=== PATIENT | female | born 1970 | race Caucasian/White ===

== ENCOUNTER 2016-03-01 00:33 | Emergency (ER) | payer SELFPAY ==
[~2016-03-01] VITALS: Ht 175.3 cm; Wt 66.0 kg
[~2016-03-01 00:33] MED LIST: LORA-392 PO; OXYC1SOL5 PO; TRAM50 PO; Z.0.WALKERFRONT; Z.0.WHEELELR
[2016-03-01 00:35] VITALS: BP 159/91; PULSE 109; RESP 16; TEMP 98.2; O2SAT 99
[2016-03-01] MEDS ORDERED: CITA10TA4 PO (00:59)
[2016-03-01] MEDS ORDERED: TRAZ300T2 PO (00:59)
[2016-03-01 02:25] LABS: AUTOMATED NEUTROPHIL # 5.1 TH/MM3 (1.8-7.7); BASOPHIL # 0.1 TH/MM3 (0-0.2); BASOPHIL % 0.8 % (0.0-2.0); EOSINOPHIL # 0.1 TH/MM3 (0-0.4); EOSINOPHIL % 1.3 % (0.0-4.0); HEMATOCRIT 39.8 % (35.0-46.0); HEMO FLAGS DIFF FINAL; LYMPH % 34.3 % (9.0-44.0); LYMPHOCYTE # 3.2 TH/MM3 (1.0-4.8); MEAN CELL VOLUME 92.7 FL (80.0-100.0); MEAN CORPUSCULAR HEMOGLOBIN 32.7 PG (27.0-34.0); MEAN CORPUSCULAR HGB CONC 35.3 % (32.0-36.0); MONO % 8.4 % (0.0-8.0); NEUT % 55.2 % (16.0-70.0); PLATELET COUNT 291 TH/MM3 (150-450); RED BLOOD COUNT 4.29 MIL/MM3 (4.00-5.30); RED CELL DISTRIBUTION WIDTH 12.5 % (11.6-17.2); WHITE BLOOD COUNT 9.2 TH/MM3 (4.0-11.0)
[2016-03-01 02:34] LABS: AMPHETAMINE, URINE POS (NEG); BARBITURATES, URINE NEG (NEG); COCAINE, URINE NEG (NEG)
[2016-03-01 02:34] LABS: ALKALINE PHOSPHATASE 129 U/L (45-117); ALT (GPT) 23 U/L (10-53); ANION GAP 10 MEQ/L (5-15); AST (GOT) 28 U/L (15-37); BICARBONATE 24.9 MEQ/L (21.0-32.0); BLOOD UREA NITROGEN 14 MG/DL (7-18); CHLORIDE 105 MEQ/L (98-107); GLOMERULAR FILTRATION RATE 70 ML/MIN (>89); POTASSIUM 3.2 MEQ/L (3.5-5.1); SODIUM (NA) 140 MEQ/L (136-145)
[2016-03-01 02:52] LABS: ACETAMINOPHEN LESS THAN 2.0 MCG/ML (10.0-30.0); TOTAL BILIRUBIN ADULT 0.6 MG/DL (0.2-1.0)
--- NOTE | 2016-03-01 03:43 | PD ---
HPI Chief Complaint: Psychiatric Symptoms Time Seen by Provider: 01:30 Travel History International Travel<30 days: No Contact w/Intl Traveler<30days: No Traveled to known affect area: No History of Present Illness HPI This is a 45-year-old female who presents voluntarily for psychiatric evaluation. She reports over the past several months she has been feeling increasingly depressed, overwhelmed with sadness. She relapsed on amphetamines and alcohol yesterday evening. She presents here now requesting psychiatric evaluation. Sometimes she has thoughts of harming herself but she has no formulated plans. Denies any medical complaints at this time. She has no other complaints. BA has been ordered. PFSH Past Medical History Arthritis: Yes (RA IN NECK AND BACK) Asthma: No Autoimmune Disease: No Bipolar Disorder: Yes Anxiety: Yes Depression: Yes (MANIC) Heart Rhythm Problems: No Cancer: No Cardiovascular Problems: No High Cholesterol: No Chemotherapy: No Chest Pain: No Congestive Heart Failure: No COPD: No Cerebrovascular Accident: No Diabetes: No Diminished Hearing: No Endocrine: No GERD: No Genitourinary: No Hiatal Hernia: No Immune Disorder: No Kidney Stones: No Musculoskeletal: Yes Neurologic: No Psychiatric: Yes Reproductive: No Respiratory: Yes (SMOKER) Immunizations Current: No Migraines: No Radiation Therapy: No Renal Failure: No Seizures: No Sickle Cell Disease: No Sleep Apnea: No Thyroid Disease: No Ulcer: No ?: Not LMP: 02/15/16 : 3 Para: 1 : 2 Past Surgical History Abdominal Surgery: No AICD: No Arteriovenous Shunt: No Cardiac Surgery: No Ear Surgery: No Endocrine Surgery: No Eye Surgery: No Genitourinary Surgery: No Gynecologic Surgery: Yes (BREAST AUGMENTATION) Insulin Pump: No Oral Surgery: No Pacemaker: No Thoracic Surgery: No Other Surgery: Yes (breast implants) Social History Alcohol Use: Yes (social) Tobacco Use: Yes (1 PPD) Substance Use: Yes (Hx. of substance abuse) Allergies-Medications (Allergen,Severity, Reaction): Coded Allergies: No Known Allergies (Verified , 03/01/16) Reported Meds & Prescriptions Reported Meds & Active Scripts Active Reported Citalopram (Citalopram Hydrobromide) 10 Mg Tab 10 Mg PO DAILY Trazodone (Trazodone HCl) 300 Mg Tab 300 Mg PO HS Review of Systems Except as stated in HPI: all other systems reviewed are Neg Physical Exam Narrative GENERAL: Well-developed well-nourished female in no acute distress SKIN: Warm and dry. HEAD: Atraumatic. Normocephalic. EYES: Pupils equal and round. No scleral icterus. No injection or drainage. CARDIOVASCULAR: Regular rate and rhythm. No murmur appreciated. RESPIRATORY: No accessory muscle use. Clear to auscultation. Breath sounds equal bilaterally. GASTROINTESTINAL: Abdomen soft, non-tender, nondistended. Hepatic and splenic margins not palpable. MUSCULOSKELETAL: No obvious deformities. No clubbing. No cyanosis. No edema. NEUROLOGICAL: Awake and alert. No obvious cranial nerve deficits. Motor grossly within normal limits. Normal speech. PSYCHIATRIC: Depressed mood. Insight and judgment appear reasonable. Data Data Last Documented VS Vital Signs Date Time Temp Pulse Resp B/P Pulse Ox O2 Delivery O2 Flow Rate FiO2 03/01/16 01:00 16 03/01/16 00:35 98.2 109 159/91 99 Room Air Orders Complete Blood Count With Diff (03/01/16 00:45) Comprehensive Metabolic Panel (03/01/16 00:45) Drug Screen, Random Urine (03/01/16 00:45) Alcohol (Ethanol) (03/01/16 00:45) Salicylates (Aspirin) (03/01/16 00:45) Tylenol (Acetaminophen) (03/01/16 00:45) Psych Screen (03/01/16 00:45) Labs Laboratory Tests Test 03/01/16 03/01/16 03/01/16 00:45 01:10 01:25 White Blood Count 9.2 TH/MM3 Red Blood Count 4.29 MIL/MM3 Hemoglobin 14.0 GM/DL Hematocrit 39.8 % Mean Corpuscular Volume 92.7 FL Mean Corpuscular Hemoglobin 32.7 PG Mean Corpuscular Hemoglobin 35.3 % Concent Red Cell Distribution Width 12.5 % Platelet Count 291 TH/MM3 Mean Platelet Volume 8.2 FL Neutrophils (%) (Auto) 55.2 % Lymphocytes (%) (Auto) 34.3 % Monocytes (%) (Auto) 8.4 % Eosinophils (%) (Auto) 1.3 % Basophils (%) (Auto) 0.8 % Neutrophils # (Auto) 5.1 TH/MM3 Lymphocytes # (Auto) 3.2 TH/MM3 Monocytes # (Auto) 0.8 TH/MM3 Eosinophils # (Auto) 0.1 TH/MM3 Basophils # (Auto) 0.1 TH/MM3 CBC Comment DIFF FINAL Differential Comment Sodium Level 140 MEQ/L Potassium Level 3.2 MEQ/L Chloride Level 105 MEQ/L Carbon Dioxide Level 24.9 MEQ/L Anion Gap 10 MEQ/L Blood Urea Nitrogen 14 MG/DL Creatinine 0.88 MG/DL Estimat Glomerular Filtration 70 ML/MIN Rate Random Glucose 103 MG/DL Calcium Level 8.9 MG/DL Total Bilirubin 0.6 MG/DL Aspartate Amino Transf 28 U/L (AST/SGOT) Alanine Aminotransferase 23 U/L (ALT/SGPT) Alkaline Phosphatase 129 U/L Total Protein 7.5 GM/DL Albumin 4.0 GM/DL Salicylates Level 3.2 MG/DL Acetaminophen Level LESS THAN 2.0 MCG/ML Ethyl Alcohol Level LESS THAN 3 MG/DL Urine Opiates Screen NEG Urine Barbiturates Screen NEG Urine Amphetamines Screen POS Urine Benzodiazepines Screen NEG Urine Cocaine Screen NEG Urine Cannabinoids Screen NEG MDM Medical Decision Making Medical Screen Exam Complete: Yes Emergency Medical Condition: Yes Medical Record Reviewed: Yes Differential Diagnosis Substance induced mood disorder, acute psychosis, major depressive disorder, depressive disorder not otherwise specified, bipolar disorder, schizoaffective disorder Narrative Course 45-year-old female presents for evaluation of depression and suicidal ideation. The patient was placed under Steel act. Mental health screening discussed with the patient. Psychiatric screen ordered. The patient's lab work is notable for positive amphetamine test, potassium 3.2. She'll be given oral potassium supplementation. She is medically cleared for psychiatric disposition. Sammy Lindo Mar 01, 2016 03:43
[2016-03-01] MEDS ORDERED: POTASSIUM CHLORIDE 20 MEQ CONTROLLED RELEASE TAB PO ONE (04:00)
[2016-03-01 06:22] VITALS: BP 118/76; PULSE 81; RESP 18; O2SAT 99
[2016-03-01] MEDS ORDERED: NICOTINE 21 MG/24 HR PATCH TD ONE (10:00)
[2016-03-01 10:20] VITALS: BP 119/67; PULSE 70; RESP 18
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
[2016-03-01 14:52] VITALS: BP 119/67; PULSE 70; RESP 18
== END 2016-03-01 17:11 | disposition home or self-care (01) ==
LOC: NEPA 00:33 → NEPJ 17:11
DX: F43.21 Adjustment disorder with depressed mood (principal); F15.10 Other stimulant abuse, uncomplicated; R45.851 Suicidal ideations; F31.9 Bipolar disorder, unspecified; F17.210 Nicotine dependence, cigarettes, uncomplicated
CPT/HCPCS: 80053; 80307; 80320; 80329; 85025; 99284; G0480

== ENCOUNTER 2016-05-22 14:50 | Emergency (ER) | payer SELFPAY ==
[~2016-05-22] VITALS: Ht 175.3 cm; Wt 65.0 kg
[~2016-05-22 14:50] MED LIST changes: +CITA10TA4 PO; -LORA-392 PO; -OXYC1SOL5 PO; -TRAM50 PO; +TRAZ300T2 PO; -Z.0.WALKERFRONT; -Z.0.WHEELELR
[2016-05-22 14:52] VITALS: BP 148/83; PULSE 84; RESP 24; TEMP 97.9; O2SAT 96
[2016-05-22] MEDS ORDERED: GABA600T PO (16:07)
[2016-05-22 16:28] LABS: AMPHETAMINE, URINE NEG (NEG); BARBITURATES, URINE NEG (NEG); COCAINE, URINE NEG (NEG)
--- NOTE | 2016-05-22 16:32 | PD ---
HPI Chief Complaint: Psychiatric Symptoms Time Seen by Provider: 15:40 Travel History International Travel<30 days: No Contact w/Intl Traveler<30days: No Traveled to known affect area: No History of Present Illness HPI The patient is a 45-year-old female who presents to the emergency department for psychiatric evaluation. The patient has a history of bipolar affective disorder and is currently taken Celexa. The patient states her psychiatrist is at [facility]. The patient went to [facility] earlier today and was referred to the emergency department she has multiple physical complaints. The patient notes a 4 month history of occasional numbness and tingling to the upper and lower extremities, difficulty concentrating, occasional seeing "black spots ", lethargy, intermittent episodes of energy followed by fatigue. The patient also notes suicidal ideation of last several days, does not currently have a plan. The patient denies any drug use and 2 months, is no longer taking methamphetamines. She denies alcohol use. She denies any current chest pain or shortness of breath. PFSH Past Medical History Arthritis: Yes (RA IN NECK AND BACK) Asthma: No Autoimmune Disease: No Bipolar Disorder: Yes Anxiety: Yes Depression: Yes (MANIC) Heart Rhythm Problems: No Cancer: No Cardiovascular Problems: No High Cholesterol: No Chemotherapy: No Chest Pain: No Congestive Heart Failure: No COPD: No Cerebrovascular Accident: No Diabetes: No Diminished Hearing: No Endocrine: No GERD: No Genitourinary: No Hiatal Hernia: No Immune Disorder: No Kidney Stones: No Musculoskeletal: Yes Neurologic: No Psychiatric: Yes Reproductive: No Respiratory: Yes (SMOKER) Immunizations Current: Yes Migraines: No Radiation Therapy: No Renal Failure: No Seizures: No Sickle Cell Disease: No Sleep Apnea: No Thyroid Disease: No Ulcer: No Tetanus Vaccination: < 5 Years Influenza Vaccination: No ?: Unknown LMP: 05/15/16 : 3 Para: 1 : 2 Past Surgical History Abdominal Surgery: No AICD: No Arteriovenous Shunt: No Cardiac Surgery: No Ear Surgery: No Endocrine Surgery: No Eye Surgery: No Genitourinary Surgery: No Gynecologic Surgery: Yes (BREAST AUGMENTATION) Insulin Pump: No Oral Surgery: No Pacemaker: No Thoracic Surgery: No Other Surgery: Yes (BREAST AUGMENTATION) Social History Alcohol Use: No (quiet 2 months) Tobacco Use: Yes (1 PPD) Substance Use: Yes (HX OF PSA) Allergies-Medications (Allergen,Severity, Reaction): Coded Allergies: No Known Allergies (Verified , 05/22/16) Reported Meds & Prescriptions Reported Meds & Active Scripts Active Reported Gabapentin 600 Mg Tab 600 Mg PO TID Citalopram (Citalopram Hydrobromide) 10 Mg Tab 10 Mg PO DAILY Trazodone (Trazodone HCl) 300 Mg Tab 300 Mg PO HS Review of Systems Except as stated in HPI: all other systems reviewed are Neg General / Constitutional: No: Fever Cardiovascular: No: Chest Pain or Discomfort Respiratory: No: Shortness of Breath Gastrointestinal: No: Nausea, Vomiting, Abdominal Pain Genitourinary: No: Dysuria, Hematuria Musculoskeletal: Positive: Myalgias, Weakness Neurologic: Positive: Weakness Psychiatric: Positive: Substance Abuse (no substance abuse in 2 months) Physical Exam Narrative GENERAL: Awake, alert, pleasant 45-year-old female who appears her stated age is in no acute respiratory distress. SKIN: Focused skin assessment warm/dry. HEAD: Atraumatic. Normocephalic. EYES: Pupils equal and round. No scleral icterus. No injection or drainage. ENT: No nasal bleeding or discharge. Mucous membranes pink and moist. NECK: Trachea midline. No JVD. CARDIOVASCULAR: Regular rate and rhythm. No murmur appreciated. RESPIRATORY: No accessory muscle use. Clear to auscultation. Breath sounds equal bilaterally. GASTROINTESTINAL: Abdomen soft, non-tender, nondistended. No rebound tenderness. MUSCULOSKELETAL: No obvious deformities. No clubbing. No cyanosis. No edema. NEUROLOGICAL: Awake and alert. No obvious cranial nerve deficits. Motor grossly within normal limits. Normal speech. PSYCHIATRIC: Flat affect. Data Data Last Documented VS Vital Signs Date Time Temp Pulse Resp B/P Pulse Ox O2 Delivery O2 Flow Rate FiO2 05/22/16 16:07 86 17 05/22/16 14:52 97.9 148/83 96 Room Air Orders Complete Blood Count With Diff (05/22/16 15:48) Comprehensive Metabolic Panel (05/22/16 15:48) Thyroid Stimulating Hormone (05/22/16 15:48) Psych Screen (05/22/16 15:48) Drug Screen, Random Urine (05/22/16 15:48) Alcohol (Ethanol) (05/22/16 15:48) Labs Laboratory Tests Test 05/22/16 16:00 White Blood Count 7.3 TH/MM3 Red Blood Count 4.24 MIL/MM3 Hemoglobin 14.1 GM/DL Hematocrit 40.5 % Mean Corpuscular Volume 95.7 FL Mean Corpuscular Hemoglobin 33.2 PG Mean Corpuscular Hemoglobin 34.7 % Concent Red Cell Distribution Width 12.9 % Platelet Count 258 TH/MM3 Mean Platelet Volume 8.3 FL Neutrophils (%) (Auto) 59.9 % Lymphocytes (%) (Auto) 30.9 % Monocytes (%) (Auto) 6.0 % Eosinophils (%) (Auto) 2.5 % Basophils (%) (Auto) 0.7 % Neutrophils # (Auto) 4.4 TH/MM3 Lymphocytes # (Auto) 2.3 TH/MM3 Monocytes # (Auto) 0.4 TH/MM3 Eosinophils # (Auto) 0.2 TH/MM3 Basophils # (Auto) 0.0 TH/MM3 CBC Comment DIFF FINAL Differential Comment Sodium Level 138 MEQ/L Potassium Level 4.6 MEQ/L Chloride Level 105 MEQ/L Carbon Dioxide Level 28.1 MEQ/L Anion Gap 5 MEQ/L Blood Urea Nitrogen 10 MG/DL Creatinine 0.51 MG/DL Estimat Glomerular Filtration 131 ML/MIN Rate Random Glucose 85 MG/DL Calcium Level 9.3 MG/DL Total Bilirubin 0.4 MG/DL Aspartate Amino Transf 24 U/L (AST/SGOT) Alanine Aminotransferase 25 U/L (ALT/SGPT) Alkaline Phosphatase 94 U/L Total Protein 7.6 GM/DL Albumin 4.2 GM/DL Thyroid Stimulating Hormone 1.110 uIU/ML 3rd Gen Urine Opiates Screen NEG Urine Barbiturates Screen NEG Urine Amphetamines Screen NEG Urine Benzodiazepines Screen NEG Urine Cocaine Screen NEG Urine Cannabinoids Screen NEG Ethyl Alcohol Level LESS THAN 3 MG/DL MDM Medical Decision Making Medical Screen Exam Complete: Yes Emergency Medical Condition: Yes Medical Record Reviewed: Yes Interpretation(s) Laboratory Tests Test 05/22/16 16:00 White Blood Count 7.3 TH/MM3 Red Blood Count 4.24 MIL/MM3 Hemoglobin 14.1 GM/DL Hematocrit 40.5 % Mean Corpuscular Volume 95.7 FL Mean Corpuscular Hemoglobin 33.2 PG Mean Corpuscular Hemoglobin 34.7 % Concent Red Cell Distribution Width 12.9 % Platelet Count 258 TH/MM3 Mean Platelet Volume 8.3 FL Neutrophils (%) (Auto) 59.9 % Lymphocytes (%) (Auto) 30.9 % Monocytes (%) (Auto) 6.0 % Eosinophils (%) (Auto) 2.5 % Basophils (%) (Auto) 0.7 % Neutrophils # (Auto) 4.4 TH/MM3 Lymphocytes # (Auto) 2.3 TH/MM3 Monocytes # (Auto) 0.4 TH/MM3 Eosinophils # (Auto) 0.2 TH/MM3 Basophils # (Auto) 0.0 TH/MM3 CBC Comment DIFF FINAL Differential Comment Sodium Level 138 MEQ/L Potassium Level 4.6 MEQ/L Chloride Level 105 MEQ/L Carbon Dioxide Level 28.1 MEQ/L Anion Gap 5 MEQ/L Blood Urea Nitrogen 10 MG/DL Creatinine 0.51 MG/DL Estimat Glomerular Filtration 131 ML/MIN Rate Random Glucose 85 MG/DL Calcium Level 9.3 MG/DL Total Bilirubin 0.4 MG/DL Aspartate Amino Transf 24 U/L (AST/SGOT) Alanine Aminotransferase 25 U/L (ALT/SGPT) Alkaline Phosphatase 94 U/L Total Protein 7.6 GM/DL Albumin 4.2 GM/DL Thyroid Stimulating Hormone 1.110 uIU/ML 3rd Gen Urine Opiates Screen NEG Urine Barbiturates Screen NEG Urine Amphetamines Screen NEG Urine Benzodiazepines Screen NEG Urine Cocaine Screen NEG Urine Cannabinoids Screen NEG Ethyl Alcohol Level LESS THAN 3 MG/DL Differential Diagnosis Differential diagnosis includes bipolar affective disorder, depressive disorder NOS, substance induced mood disorder, mood disorder NOS, hypothyroidism, hyponatremia, hypocalcemia. Narrative Course Labs were drawn and sent. Psychiatric evaluation was ordered. Labs are unremarkable. Patient is medically cleared to be evaluated by psychiatry. Disposition as per psych. Diagnosis Primary Impression: Adjustment disorder with depressed mood Condition: Stable Ronnell Alan MD May 22, 2016 16:32
[2016-05-22 16:37] LABS: AUTOMATED NEUTROPHIL # 4.4 TH/MM3 (1.8-7.7); BASOPHIL % 0.7 % (0.0-2.0); EOSINOPHIL # 0.2 TH/MM3 (0-0.4); EOSINOPHIL % 2.5 % (0.0-4.0); HEMATOCRIT 40.5 % (35.0-46.0); HEMO FLAGS DIFF FINAL; LYMPH % 30.9 % (9.0-44.0); LYMPHOCYTE # 2.3 TH/MM3 (1.0-4.8); MEAN CELL VOLUME 95.7 FL (80.0-100.0); MEAN CORPUSCULAR HEMOGLOBIN 33.2 PG (27.0-34.0); MEAN CORPUSCULAR HGB CONC 34.7 % (32.0-36.0); NEUT % 59.9 % (16.0-70.0); PLATELET COUNT 258 TH/MM3 (150-450); RED BLOOD COUNT 4.24 MIL/MM3 (4.00-5.30); RED CELL DISTRIBUTION WIDTH 12.9 % (11.6-17.2); WHITE BLOOD COUNT 7.3 TH/MM3 (4.0-11.0)
[2016-05-22 17:04] LABS: ALT (GPT) 25 U/L (10-53); ANION GAP 5 MEQ/L (5-15); AST (GOT) 24 U/L (15-37); BICARBONATE 28.1 MEQ/L (21.0-32.0); BLOOD UREA NITROGEN 10 MG/DL (7-18); CHLORIDE 105 MEQ/L (98-107); GLOMERULAR FILTRATION RATE 131 ML/MIN (>89); POTASSIUM 4.6 MEQ/L (3.5-5.1); SODIUM (NA) 138 MEQ/L (136-145)
[2016-05-22 17:13] LABS: ALKALINE PHOSPHATASE 94 U/L (45-117); TOTAL BILIRUBIN ADULT 0.4 MG/DL (0.2-1.0)
--- NOTE | 2016-05-22 19:58 | PD ---
Physical Exam Time Seen by Provider: 19:58 Data Data Last Documented VS Vital Signs Date Time Temp Pulse Resp B/P Pulse Ox O2 Delivery O2 Flow Rate FiO2 05/22/16 16:07 86 17 05/22/16 14:52 97.9 148/83 96 Room Air Orders Complete Blood Count With Diff (05/22/16 15:48) Comprehensive Metabolic Panel (05/22/16 15:48) Thyroid Stimulating Hormone (05/22/16 15:48) Psych Screen (05/22/16 15:48) Drug Screen, Random Urine (05/22/16 15:48) Alcohol (Ethanol) (05/22/16 15:48) Labs Laboratory Tests Test 05/22/16 16:00 White Blood Count 7.3 TH/MM3 Red Blood Count 4.24 MIL/MM3 Hemoglobin 14.1 GM/DL Hematocrit 40.5 % Mean Corpuscular Volume 95.7 FL Mean Corpuscular Hemoglobin 33.2 PG Mean Corpuscular Hemoglobin 34.7 % Concent Red Cell Distribution Width 12.9 % Platelet Count 258 TH/MM3 Mean Platelet Volume 8.3 FL Neutrophils (%) (Auto) 59.9 % Lymphocytes (%) (Auto) 30.9 % Monocytes (%) (Auto) 6.0 % Eosinophils (%) (Auto) 2.5 % Basophils (%) (Auto) 0.7 % Neutrophils # (Auto) 4.4 TH/MM3 Lymphocytes # (Auto) 2.3 TH/MM3 Monocytes # (Auto) 0.4 TH/MM3 Eosinophils # (Auto) 0.2 TH/MM3 Basophils # (Auto) 0.0 TH/MM3 CBC Comment DIFF FINAL Differential Comment Sodium Level 138 MEQ/L Potassium Level 4.6 MEQ/L Chloride Level 105 MEQ/L Carbon Dioxide Level 28.1 MEQ/L Anion Gap 5 MEQ/L Blood Urea Nitrogen 10 MG/DL Creatinine 0.51 MG/DL Estimat Glomerular Filtration 131 ML/MIN Rate Random Glucose 85 MG/DL Calcium Level 9.3 MG/DL Total Bilirubin 0.4 MG/DL Aspartate Amino Transf 24 U/L (AST/SGOT) Alanine Aminotransferase 25 U/L (ALT/SGPT) Alkaline Phosphatase 94 U/L Total Protein 7.6 GM/DL Albumin 4.2 GM/DL Thyroid Stimulating Hormone 1.110 uIU/ML 3rd Gen Urine Opiates Screen NEG Urine Barbiturates Screen NEG Urine Amphetamines Screen NEG Urine Benzodiazepines Screen NEG Urine Cocaine Screen NEG Urine Cannabinoids Screen NEG Ethyl Alcohol Level LESS THAN 3 MG/DL MDM Medical Record Reviewed: Yes Supervised Visit with BINU: No Diagnosis Primary Impression: Adjustment disorder with depressed mood Referrals: [facility] Patient Instructions: Depression (ED), General Instructions Additional Instruction: Go to [facility] tomorrow morning You are medically cleared for their facility Return immediately with any acute worsening of symptoms Med/Other Pt SpecificInfo: No Change to Meds Disposition: 01 DISCHARGE HOME Condition: Stable Marcia Franklin May 22, 2016 19:58
== END 2016-05-22 20:39 | disposition home or self-care (01) ==
LOC: NEPE 14:50
DX: F43.21 Adjustment disorder with depressed mood (principal); M79.1 Myalgia
CPT/HCPCS: 80053; 80307; 84443; 85025; 99284

== ENCOUNTER 2016-06-01 10:41 | Emergency (ER) | payer SELFPAY ==
[~2016-06-01] VITALS: Ht 175.3 cm; Wt 68.0 kg
[~2016-06-01 10:41] MED LIST changes: +GABA600T PO
[2016-06-01 10:43] VITALS: BP 139/98; PULSE 72; RESP 16; TEMP 97.7; O2SAT 96
[2016-06-01] MEDS ORDERED: PERI0.126 SWISH-SPIT (11:13)
[2016-06-01] MEDS ORDERED: AMOX500C PO (11:13)
[2016-06-01] MEDS ORDERED: IBUP800T23 PO (11:13)
--- NOTE | 2016-06-01 11:13 | PD ---
HPI Chief Complaint: Oral / Dental Pain or Problem Time Seen by Provider: 11:11 Travel History International Travel<30 days: No Contact w/Intl Traveler<30days: No Traveled to known affect area: No History of Present Illness HPI 45-year-old female presents to the emergency Department with complaint of left upper dental pain 2-3 days. She states that she cracked her tooth either day and now she is experiencing pain. Denies fever, chills, nausea, vomiting. Denies facial edema or erythema. No other medical complaints. No other modifying factors or associated signs and symptoms. PFSH Past Medical History Arthritis: Yes (RA IN NECK AND BACK) Asthma: No Autoimmune Disease: No Bipolar Disorder: Yes Anxiety: Yes Depression: Yes (MANIC) Heart Rhythm Problems: No Cancer: No Cardiovascular Problems: No High Cholesterol: No Chemotherapy: No Chest Pain: No Congestive Heart Failure: No COPD: No Cerebrovascular Accident: No Diabetes: No Diminished Hearing: No Endocrine: No GERD: No Genitourinary: No Hiatal Hernia: No Immune Disorder: No Kidney Stones: No Musculoskeletal: Yes Neurologic: No Psychiatric: Yes Reproductive: No Respiratory: Yes (SMOKER) Immunizations Current: Yes Migraines: No Radiation Therapy: No Renal Failure: No Seizures: No Sickle Cell Disease: No Sleep Apnea: No Thyroid Disease: No Ulcer: No : 3 Para: 1 : 2 Past Surgical History Abdominal Surgery: No AICD: No Arteriovenous Shunt: No Cardiac Surgery: No Ear Surgery: No Endocrine Surgery: No Eye Surgery: No Genitourinary Surgery: No Gynecologic Surgery: Yes (BREAST AUGMENTATION) Insulin Pump: No Oral Surgery: No Pacemaker: No Thoracic Surgery: No Other Surgery: Yes (BREAST AUGMENTATION) Social History Alcohol Use: No (quiet 2 months) Tobacco Use: Yes (1 PPD) Substance Use: Yes (HX OF PSA) Allergies-Medications (Allergen,Severity, Reaction): Coded Allergies: No Known Allergies (Verified , 06/01/16) Reported Meds & Prescriptions Reported Meds & Active Scripts Active Ibuprofen 800 Mg Tab 800 Mg PO Q6HR PRN Peridex Liq (Chlorhexidine Gluconate (Mouth) Liq) 0.12% Soln 15 Ml SWISH-SPIT BID 10 Days Amoxicillin 500 Mg Cap 500 Mg PO BID 10 Days Reported Gabapentin 600 Mg Tab 600 Mg PO TID Citalopram (Citalopram Hydrobromide) 10 Mg Tab 10 Mg PO DAILY Trazodone (Trazodone HCl) 300 Mg Tab 300 Mg PO HS Review of Systems Except as stated in HPI: all other systems reviewed are Neg Physical Exam Narrative GENERAL: Well-nourished, well-developed female patient, in no acute distress; afebrile, nontoxic-appearing SKIN: Warm and dry. HEAD: Atraumatic. Normocephalic. No facial edema, erythema, tenderness on palpation. No lymphadenopathy. EYES: Pupils equal and round. No scleral icterus. No injection or drainage. ENT: Mucosa pink and moist. Airway patent. MOUTH: Mucous membranes moist, no lesions, tongue and gums appear normal. Left upper tooth #13 is absent with a small portion of the tooth still present; the remaining tooth is tender on palpation and the surrounding gingiva is without erythema, edema, or obvious abscess. NECK: Trachea midline. No lymphadenopathy. CARDIOVASCULAR: Regular rate. RESPIRATORY: No accessory muscle use. GASTROINTESTINAL: Flat. MUSCULOSKELETAL: No obvious deformities. No clubbing. No cyanosis. No edema. NEUROLOGICAL: Awake and alert. Oriented 3. No obvious cranial nerve deficits. Motor grossly within normal limits. Normal speech. PSYCHIATRIC: Appropriate mood and affect; insight and judgment normal. Data Data Last Documented VS Vital Signs Date Time Temp Pulse Resp B/P Pulse Ox O2 Delivery O2 Flow Rate FiO2 06/01/16 10:43 97.7 72 16 139/98 96 Room Air MDM Medical Decision Making Medical Screen Exam Complete: Yes Emergency Medical Condition: Yes Medical Record Reviewed: Yes Differential Diagnosis Dental trauma, dental abscess, gingivitis, infected dental carry Narrative Course 45-year-old female with dentalgia to tooth #13. No obvious abscess noted. No facial edema or erythema. Patient provided with emergency dental information sheet for follow-up. Instructed patient to follow up with dentist. Amoxicillin , Peridex mouth rinse, ibuprofen prescribed for home. Patient verbalizes understanding and agreement with treatment plan. Patient is medically cleared and stable for discharge. Discussed reasons to return to the emergency department. Instructed patient to follow up with primary care provider. Patient agrees with treatment plan. The patients vital signs are stable and the patient is stable for outpatient follow-up and treatment. Patient discharged home, stable and in no acute distress. Diagnosis Primary Impression: Dentalgia Referrals: Dentist Primary Care Physician Patient Instructions: Dental Abscess (ED), Dental Caries (ED), General Instructions, Toothache (ED) Departure Forms: Tests/Procedures, Work Release Enter return to work date: Jun 02, 2016 Additional Instructions: Complete full course of antibiotics Ibuprofen as directed and as needed to reduce pain and inflammation Use Magic mouthwash rinse as directed and as needed to decrease pain Use Peridex as directed for oral hygiene Warm compresses to the affected area Follow-up with dentist Follow-up with primary care provider Return to emergency department immediately with worsening of symptoms Med/Other Pt SpecificInfo: Prescription(s) given Scripts Ibuprofen 800 Mg [id number] Mg PO Q6HR PRN (PAIN) #30 TAB Ref 0 Prov:Sherie Christopher 06/01/16 Chlorhexidine Gluconate (Mouth) Liq (Peridex Liq)0.12% Soln15 Ml SWISH-SPIT BID 10 Days Ref 0 Prov:Sherie Christopher 06/01/16 Amoxicillin 500 Mg [id number] Mg PO BID 10 Days Ref 0 Prov:Sherie Christopher 06/01/16 Disposition: 01 DISCHARGE HOME Condition: Stable Sherie Christopher Jun 01, 2016 11:13
[2016-06-01] MEDS ORDERED: LITH300C2 PO (11:28)
== END 2016-06-01 11:34 | disposition home or self-care (01) ==
LOC: NEPK 10:41
DX: K08.89 Other specified disorders of teeth and supporting structures (principal); F17.210 Nicotine dependence, cigarettes, uncomplicated
CPT/HCPCS: 99282

== ENCOUNTER 2017-06-12 03:26 | Emergency (ER) | payer SELFPAY ==
[~2017-06-12] VITALS: Ht 172.7 cm; Wt 70.0 kg
[~2017-06-12 03:26] MED LIST changes: +AMOX500C PO; -CITA10TA4 PO; +IBUP1TAB7 PO; +LITH300C2 PO; +PERI0.126 SWISH-SPIT
[2017-06-12 03:30] VITALS: BP 127/78; PULSE 75; RESP 18; TEMP 97.8; O2SAT 99
[2017-06-12] MEDS ORDERED: ZANT300T PO (05:37)
[2017-06-12] MEDS ORDERED: PRED20 PO (05:37)
--- NOTE | 2017-06-12 05:37 | PD ---
HPI Chief Complaint: Skin Problem Time Seen by Provider: 05:29 Travel History International Travel<30 days: No Contact w/Intl Traveler<30days: No Traveled to known affect area: No History of Present Illness HPI 46-year-old female complains of rash on the right wrist and facial swelling. Patient states that she came in contact with poison sara recently. Patient denies any headache. Patient denies any visual change. Patient denies any chest pain or shortness of breath. Patient denies abdominal pain. Patient denies any fever chills. Patient states that the rash is itching. PFSH Past Medical History Arthritis: Yes (RA IN NECK AND BACK) Asthma: No Autoimmune Disease: No Bipolar Disorder: Yes Anxiety: Yes Depression: Yes (MANIC) Heart Rhythm Problems: No Cancer: No Cardiovascular Problems: No High Cholesterol: No Chemotherapy: No Chest Pain: No Congestive Heart Failure: No COPD: No Cerebrovascular Accident: No Diabetes: No Diminished Hearing: No Endocrine: No Gastrointestinal Disorders: No GERD: No Genitourinary: No Headaches: No Hiatal Hernia: No Heparin Induced Thrombocytopen: No Hypertension: No Immune Disorder: No Kidney Stones: No Musculoskeletal: Yes Neurologic: No Psychiatric: Yes Reproductive: No Respiratory: Yes (SMOKER) Immunizations Current: Yes Migraines: No Radiation Therapy: No Renal Failure: No Seizures: No Sickle Cell Disease: No Sleep Apnea: No Thyroid Disease: No Ulcer: No ?: Not : 3 Para: 1 : 2 Past Surgical History Abdominal Surgery: No AICD: No Arteriovenous Shunt: No Cardiac Surgery: No Ear Surgery: No Endocrine Surgery: No Eye Surgery: No Genitourinary Surgery: No Gynecologic Surgery: Yes (BREAST AUGMENTATION) Insulin Pump: No Neurologic Surgery: No Oral Surgery: No Pacemaker: No Thoracic Surgery: No Other Surgery: Yes (BREAST AUGMENTATION) Social History Alcohol Use: Yes (QUIT 3 months) Tobacco Use: Yes (1 PPD) Substance Use: Yes (HX OF PSA) Allergies-Medications (Allergen,Severity, Reaction): Coded Allergies: No Known Allergies (Verified Adverse Reaction, Unknown, 06/12/17) Reported Meds & Prescriptions Reported Meds & Active Scripts Active Prednisone 20 Mg Tab 20 Mg PO BID Zantac (Ranitidine HCl) 300 Mg Tab 300 Mg PO DAILY Ibuprofen 800 Mg Tab 800 Mg PO Q6HR PRN Peridex Liq (Chlorhexidine Gluconate (Mouth) Liq) 0.12% Soln 15 Ml SWISH-SPIT BID 10 Days Amoxicillin 500 Mg Cap 500 Mg PO BID 10 Days Reported Cut Off Carbonate 300 Mg Cap 300 Mg PO BID Gabapentin 600 Mg Tab 600 Mg PO TID Trazodone (Trazodone HCl) 300 Mg Tab 300 Mg PO HS Review of Systems General / Constitutional: No: Fever Eyes: No: Visual changes HENT: No: Headaches Cardiovascular: No: Chest Pain or Discomfort Respiratory: No: Shortness of Breath Gastrointestinal: No: Abdominal Pain Genitourinary: No: Dysuria Musculoskeletal: No: Pain Skin: Positive Rash, Positive Itching Neurologic: No: Weakness Psychiatric: No: Depression Endocrine: No: Polydipsia Hematologic/Lymphatic: No: Easy Bruising Physical Exam Narrative GENERAL: Well-nourished, well-developed patient. SKIN: Focused skin assessment warm/dry. Mild patchy rash on the wrist area. HEAD: Normocephalic. EYES: No scleral icterus. No injection or drainage. Patient has mild edema on the facial area. No redness no heat noted. No tenderness on palpation. NECK: Supple, trachea midline. No JVD or lymphadenopathy. CARDIOVASCULAR: Regular rate and rhythm without murmurs, gallops, or rubs. RESPIRATORY: Breath sounds equal bilaterally. No accessory muscle use. No stridor or wheezes. GASTROINTESTINAL: Abdomen soft, non-tender, nondistended. MUSCULOSKELETAL: No cyanosis, or edema. BACK: Nontender without obvious deformity. No CVA tenderness. Data Data Last Documented VS Vital Signs Date Time Temp Pulse Resp B/P (MAP) Pulse Ox O2 Delivery O2 Flow Rate FiO2 06/12/17 03:30 97.8 75 18 127/78 (94) 99 Orders Orders Dexamethasone Inj (Decadron Inj) (06/12/17 05:45) Diphenhydramine (Benadryl) (06/12/17 05:45) MDM Medical Decision Making Medical Screen Exam Complete: Yes Emergency Medical Condition: Yes Differential Diagnosis Differential diagnosis including contact dermatitis, allergic reaction. Narrative Course 46-year-old female with itching rash on the wrists and facial edema. Decadron 8 mg IM. Benadryl 25 mg p.o. Diagnosis Primary Impression: Contact dermatitis Qualified Codes: L23.9 - Allergic contact dermatitis, unspecified cause Patient Instructions: General Instructions Additional Instructions: Take medications as directed. Benadryl as needed for itching. Follow-up with local physician. Return if worse or shortness of breath. Med/Other Pt SpecificInfo: Prescription(s) given Scripts Prednisone (Prednisone) 20 Mg Tab 20 MG PO BID, #14 TAB 0 Refills Prov: Ortega Sandoval MD 06/12/17 Ranitidine (Zantac) 300 Mg Tab 300 MG PO DAILY, #14 TAB 0 Refills Prov: Ortega Sandoval MD 06/12/17 Disposition: 01 DISCHARGE HOME Condition: Stable Ortega Sandoval MD Jun 12, 2017 05:37
[2017-06-12] MEDS ORDERED: DEXAMETHASONE SOD PHOS 4 MG/ML VIAL IM ONE (05:45)
[2017-06-12] MEDS ORDERED: diphenhydrAMINE HCL 25 MG CAP PO ONE (05:45)
== END 2017-06-12 05:53 | disposition home or self-care (01) ==
LOC: NEPC 03:26
DX: L23.7 Allergic contact dermatitis due to plants, except food (principal); F31.9 Bipolar disorder, unspecified; F17.210 Nicotine dependence, cigarettes, uncomplicated; Z79.899 Other long term (current) drug therapy
CPT/HCPCS: 96372; 99283; J1100